=== PATIENT | male | born 1955 | race African-American/Black ===

== ENCOUNTER → 2023-07-10 | Outpatient (CLI) | payer BC ==
--- NOTE | 2023-07-10 10:03 | CT ---
EXAMINATION TYPE: CT brain wo con DATE OF EXAM: 07/10/2023 COMPARISON: None HISTORY: Chronic headache x7 days RT side CT DLP: 1246.80 mGycm Automated exposure control for dose reduction was used. FINDINGS: The ventricles and basal cisterns and sulci over the convexities are within normal limits and there i s no mass effect or shift of midline structures. There is no acute intra or extra-axial hemorrhage. Posterior fossa including the brainstem, fourth ventricle and cerebellar pontine angles appear grossl y normal. The intraorbital contents appear normal and symmetric. Visualized paranasal sinuses and mastoid air cells are well aerated. IMPRESSION: No significant abnormality seen. There is no acute bleed or mass effect.
== END | disposition home or self-care (01) ==
LOC: RADCTMAIN 09:30
PROVIDERS: ATTEND Family Medicine
DX: R51.9 Headache, unspecified (principal)
CPT/HCPCS: 70450

== ENCOUNTER 2024-06-10 20:34 | Emergency (ER) | payer BC, MEDICARE ==
[2024-06-10] MEDS ORDERED: SODIUM CHLORIDE 0.9% 1,000 ML BAG ONE (23:30)
[2024-06-10] MEDS ORDERED: MAG HYDROX/AL HYDROX/SIMETH 30 ML CUP ONE (23:30)
[2024-06-10] MEDS ORDERED: ONDANSETRON 4 MG/2 ML VIAL ONE (23:30)
[2024-06-10] MEDS ORDERED: LIDOCAINE VISCOUS 300 MG/15 ML CUP ONE (23:30)
[2024-06-10] MEDS ORDERED: HYOSCYAMINE ELIXIR 250 MCG/10 ML BTL ONE (23:30)
--- NOTE | 2024-07-18 13:35 | XR ---
EXAM: XR Chest, 2 Views CLINICAL HISTORY: Chest pain sob TECHNIQUE: Frontal and lateral views of the chest. COMPARISON: No relevant prior studies available. FINDINGS: Lungs:Atelectasis at the lung bases. Pleural space:Unremarkable. No pneumothorax. Heart:Unremarkable. No cardiomegaly. Mediastinum:Unremarkable. Normal mediastinal contour. Bones/joints:Unremarkable. No acute fracture. IMPRESSION: No acute findings in the chest. Radiologist: Lauro Giron MD Electronically Signed: 06/11/24 01:08 Study ready at 00:06 and initial results transmitted at 01:08 Results also transmitted to Film Room, Film Room @ [phone] (Fax) AZUL
== END 2024-06-11 02:32 | disposition home or self-care (01) ==
LOC: EC 20:34
DX: R07.89 Other chest pain (principal)
CPT/HCPCS: 71046; 99285

== ENCOUNTER 2024-06-12 17:26 | Inpatient (IN) | payer BC ==
[~2024-06-12 17:26] MED LIST: HYDROmorphone 0.5 MG/0.5 ML SYRINGE ONE; LACTATED RINGERS 1,000 ML BAG ONE; PIPERACILLIN-TAZOBACTAM 3.375 GM VIAL ONE; SODIUM CHLORIDE 0.9% 1,000 ML BAG ONE; SODIUM CHLORIDE 0.9% 100 ML BAG IV ONE
[2024-06-12] MEDS ORDERED: HYDROmorphone 1 MG/ML 1 ML SYRINGE ONE (20:17)
[2024-06-13] MEDS ORDERED: SODIUM CHLORIDE 0.9% 100 ML BAG IV ONE (00:01)
[2024-06-13] MEDS ORDERED: LACTATED RINGERS 1,000 ML BAG ONE (00:01)
[2024-06-13] MEDS ORDERED: HYDROmorphone 1 MG/ML 1 ML SYRINGE ONE ×3 (01:43→16:16)
[2024-06-13] MEDS ORDERED: PIPERACILLIN-TAZOBACTAM 3.375 GM VIAL ONE ×3 (05:26→21:43)
[2024-06-13] MEDS ORDERED: amLODIPine 10 MG TAB ONE (08:27)
[2024-06-13] MEDS ORDERED: ATORVASTATIN 10 MG TAB ONE (08:27)
[2024-06-13] MEDS ORDERED: PANTOPRAZOLE 40 MG TABLET PO ONE (08:27)
[2024-06-13] MEDS ORDERED: ACETAMINOPHEN TAB 325 MG TAB ONE (18:35)
[2024-06-13] MEDS ORDERED: INSULIN ASPART (NovoLOG) 100 UNIT/ML VIAL SQ ONE (18:35)
[2024-06-14] MEDS ORDERED: LACTATED RINGERS 1,000 ML BAG ONE (00:01)
[2024-06-14] MEDS ORDERED: SODIUM CHLORIDE 0.9% 100 ML BAG IV ONE (00:01)
[2024-06-14] MEDS ORDERED: HYDROmorphone 1 MG/ML 1 ML SYRINGE ONE ×2 (00:34→04:57)
[2024-06-14] MEDS ORDERED: PIPERACILLIN-TAZOBACTAM 3.375 GM VIAL ONE ×2 (06:40→14:30)
[2024-06-14] MEDS ORDERED: ACETAMINOPHEN TAB 325 MG TAB ONE (07:23)
[2024-06-14] MEDS ORDERED: amLODIPine 10 MG TAB ONE (07:24)
[2024-06-14] MEDS ORDERED: MIDAZOLAM 2 MG/2 ML VIAL ONE (07:59)
[2024-06-14] MEDS ORDERED: SUCCINYLCHOLINE CHLORIDE 200 MG/10 ML VIAL IV ONE (07:59)
[2024-06-14] MEDS ORDERED: PROPOFOL 10 MG/ML 20 ML VIAL IV ONE (07:59)
[2024-06-14] MEDS ORDERED: LIDOCAINE 1% INJ 10MG/ML (20 ML MDV) ONE (07:59)
[2024-06-14] MEDS ORDERED: ATORVASTATIN 10 MG TAB ONE (10:21)
[2024-06-14] MEDS ORDERED: PANTOPRAZOLE 40 MG TABLET PO ONE (10:21)
[2024-06-14] MEDS ORDERED: INSULIN ASPART (NovoLOG) 100 UNIT/ML VIAL SQ ONE (12:32)
[2024-06-14] MEDS ORDERED: ACETAMINOPHEN TAB 325 MG TAB PO PRN (21:58)
[2024-06-14] MEDS ORDERED: ONDANSETRON 4 MG/2 ML VIAL IVP PRN (21:58)
[2024-06-14] MEDS ORDERED: DEXTROSE 50% SYRINGE 50 ML IVP PRN ×2 (21:59)
[2024-06-15] MEDS: HYDROmorphone 1 MG/ML 1 ML SYRINGE IM PRN (05:18)
[2024-06-15] MEDS: LACTATED RINGERS 1,000 ML IV SCH ×2 (05:31→14:58)
[2024-06-15] MEDS: PIPERACILLIN-TAZOBACTAM 3.375 GM in SODIUM CHLORIDE 0.9% 100 ML IVPB SCH (05:32)
[2024-06-15 06:48] LABS: HCT 35.4 % (39.0-53.0); MCH 25.8 pg (25.0-35.0); Mean Platelet Volume 6.7; Microcytosis Slight; Platelet Count 275 k/uL (150-450); RBC 4.65 m/uL (4.30-5.90); RDW 14.8 % (11.5-15.5); WBC 8.8 k/uL (3.8-10.6)
[2024-06-15 07:01] LABS: ALT 81 U/L (4-49); AST 33 U/L (17-59); African American GFR (CKD) >90 (>60 ml/min/1.73 sqM); Albumin 3.2 g/dL (3.5-5.0); Albumin/Globulin Ratio 1.2; Alkaline Phosphatase 164 U/L (38-126); Anion Gap 4 mmol/L; Bilirubin,Unconjugated 0.8 mg/dL (0.0-1.1); Blood Urea Nitrogen 13 mg/dL (9-20); Calcium 8.7 mg/dL (8.4-10.2); Carbon Dioxide 29 mmol/L (22-30); Chloride 103 mmol/L (98-107); Globulin 2.7 g/dL; Glucose 146 mg/dL (74-99); Non-African American GFR(CKD) >90 (>60 ml/min/1.73 sqM); Potassium 3.8 mmol/L (3.5-5.1); Sodium 136 mmol/L (137-145); Total Bilirubin 1.6 mg/dL (0.2-1.3); Total Protein 5.9 g/dL (6.3-8.2)
[2024-06-15 07:15] LABS: Glucose,Whole Blood 139 mg/dL (70-110)
[2024-06-15] MEDS: INSULIN ASPART (NovoLOG) 100 UNIT/ML VIAL SQ SCH (07:25)
[2024-06-15] MEDS ORDERED: LIDOCAINE 1% (10MG/ML) FOR IV START INTRADERMA PRN (08:49)
[2024-06-15] MEDS: IV FLUID CONTINUATION 1,000 ML IV ONE ×2 (09:34→11:40)
[2024-06-15] MEDS ORDERED: HEPARIN SODIUM,PORCINE 5,000 UNIT/ML 1 ML VIAL ONE (10:01)
[2024-06-15] MEDS ORDERED: LACTATED RINGERS 1,000 ML BAG ONE (10:01)
[2024-06-15] MEDS: LIDOCAINE 1%-EPI 1:100,000 20 ML VIAL SQ ONE ×2 (10:02→10:38)
[2024-06-15] MEDS: LACTATED RINGERS 1,000 ML IV ONE (10:06)
[2024-06-15] MEDS ORDERED: HYDROcodone/APAP 10-325MG 1 EACH TAB PO PRN (10:32)
--- NOTE | 2024-06-15 10:43 | P.OP ---
Date of Procedure: 06/15/24 Preoperative Diagnosis: Choledocholithiasis Postoperative Diagnosis: Choledocholithiasis and Gangrenous Cholecystitis Procedure(s) Performed: Laparoscopic Subtotal Cholecystectomy Implants: None Anesthesia: MAC Surgeon: Aron Bateman Pathology: other (Gallbladder) Condition: stable Disposition: PACU Description of Procedure: Patient was brought to the operative suite and placed in the supine position. After anesthesia was given, patient was prepped and draped in sterile fashion. A timeout was performed before beginning the procedure. An #11 blade was used to make an incision at [facility] and a 5 mm optiview was used to gain access to the abdomen. The rest of the 5 mm ports and a 12 mm port were placed in traditional working locations for a laparoscopic cholecystectomy. The patient was then positioned. The abdomen was inspected and the omentum was densely a dhered to the liver and I could not immediately visualize the gallbladder. The ligasure was used to take down the omentum. Once the omentum was taken down the gallbladder was very distended and there was purulence surrounding the gallbladder. The gallbladder appeared gangrenous at well. The gallbladder was also densely adhered to the small bowel. Due to the gangenous nature of the gallbladder and because of its adherence to the small bowel, decision was made to perfom a subtotal cholecystectomy. A ligasure device was used to take off the front wall of the gallbladder to the base of the gallbladder. The gallbladder lumen was irrigated. The gallbladder specimen was removed. There was some bleeding noted which was controlled with cautery. A #19 F MIKI was placed in the hepatic fossa. Hemostatic powder was placed. At this point the ports were removed. The incisions were closed with 4-0 monocryl and skin glue was applied. The patient tolerated the procedure well and was sent to the PACU in stable condition.
[2024-06-15] MEDS: HYDROmorphone 0.5 MG/0.5 ML SYRINGE IVP PRN (11:11)
[2024-06-15] MEDS: KETOROLAC 15 MG/ML 1 ML VIAL IVP STA (11:15)
[2024-06-15 11:39] LABS: Glucose,Whole Blood 159 mg/dL (70-110)
[2024-06-15 12:32] LABS: Glucose,Whole Blood 167 mg/dL (70-110)
[2024-06-15] MEDS: ONDANSETRON 4 MG/2 ML VIAL IVP ONE (12:47)
[2024-06-15] MEDS: DEXAMETHASONE SOD PHOSPHATE 4 MG/ML 1 ML VIAL IV ONE (12:47)
[2024-06-15] MEDS: PANTOPRAZOLE 40 MG TABLET PO SCH (12:49)
[2024-06-15] MEDS: ATORVASTATIN 10 MG TAB PO SCH (12:50)
[2024-06-15] MEDS: amLODIPine 10 MG TAB PO SCH (12:54)
[2024-06-15] MEDS: HYDROmorphone 1 MG/ML 1 ML SYRINGE IVP PRN (14:06)
--- NOTE | 2024-06-15 14:10 | P.PN ---
Subjective Progress Note Date: 06/15/24 Hospital Course: 68-year-old male with history of hypertension, dyslipidemia, diabetes presented with abdominal pain. Imaging concerning for acute cholecystitis. Admitted for sepsis secondary cholecystitis. Surgery was consulted. Her worsening transaminases concerning for acute cholangitis. Underwent ERCP with sphincterotomy and balloon sweep. Today he underwent cholecystectomy. Subjective: Patient seen and examined at bedside. No acute events overnight. Still having some abdominal pain after surgery. Denies any nausea or vomiting. Pertinent positives and negatives as discussed above, a complete review of systems was performed and all other systems are negative. Vitals Signs Reviewed. General: Nontoxic, no distress, appears at stated age Derm: Warm, dry Head: Atraumatic, normocephalic, symmetric Eyes: EOMI, no lid lag, anicteric sclera Mouth: No lip lesion, mucus membranes moist Cardiovascular: S1S2 reg, no murmur Lungs: CTA bilateral, no rhonchi, no rales, no accessory muscle use Abdominal: Soft, mild tender to palpation in the right upper quadrant, no guarding, no appreciable organomegaly, drain in place, serosanguineous discharge Ext: No gross muscle atrophy, no edema, no contractures Neuro: CN II-XI grossly intact, no focal neuro deficits Psych: Alert, oriented, appropriate affect Data Reviewed Today: Pertinent Labs: WBC 8.8, hemoglobin 12, platelet 275, sodium 136, creatinine 0.77, blood sugars range between 1 39-1 67, ALP 164, AST 33, ALT 81, total bili 1.6 Imaging: No new imaging Assessment and Plan: Active: Sepsis secondary to acute cholecystitis status post cholecystectomy Suspected acute cholangitis status post ERCP Transaminitis Hyperbilirubinemia -Continue IV Zosyn 3.375 g every 8 hours -Tylenol as needed, [place] as needed, IV Dilaudid as needed for pain control, monitor for sedation -Continue LR at 75 cc an hour -Protonix 40 PO daily Hypertension -Continue amlodipine 10 mg daily Dyslipidemia -Continue atorvastatin 10 mg daily Diabetes -Sliding scale insulin, monitor for hypoglycemia DVT ppx: Subcu heparin Code status: Full code Anticipated discharge place: Pending clinical course Anticipated discharge time: Pending clinical course Objective - Vital Signs Vital signs: Vital Signs Temp 98.0 F 06/15/24 12:31 Pulse 94 06/15/24 13:27 Resp 20 06/15/24 12:31 BP 137/88 06/15/24 13:27 Pulse Ox 98 06/15/24 13:27 FiO2 Intake & Output 06/14/24 06/15/24 06/15/24 18:59 06:59 18:59 Intake Total 1300 Output Total 600 150 Balance -600 1150 Weight 163.293 kg Intake: IV 1300 Output: Urine 600 Estimated Blood Loss 150 Other: Voiding Method Toilet - Labs CBC & Chem 7: 06/15/24 06:06 06/15/24 06:06 Labs: Abnormal Lab Results - Last 24 Hours (Table) 06/15/24 06/15/24 06/15/24 Range/Units 06:06 06:06 07:13 Hgb 12.0 L (13.0-17.5) gm/dL Hct 35.4 L (39.0-53.0) % MCV 76.0 L (80.0-100.0) fL Sodium 136 L (137-145) mmol/L Glucose 146 H (74-99) mg/dL POC Glucose (mg/dL) 139 H (70-110) mg/dL Total Bilirubin 1.6 H (0.2-1.3) mg/dL ALT 81 H (4-49) U/L Alkaline Phosphatase 164 H (38-126) U/L Total Protein 5.9 L (6.3-8.2) g/dL Albumin 3.2 L (3.5-5.0) g/dL 06/15/24 06/15/24 Range/Units 11:37 12:29 Hgb (13.0-17.5) gm/dL Hct (39.0-53.0) % MCV (80.0-100.0) fL Sodium (137-145) mmol/L Glucose (74-99) mg/dL POC Glucose (mg/dL) 159 H 167 H (70-110) mg/dL Total Bilirubin (0.2-1.3) mg/dL ALT (4-49) U/L Alkaline Phosphatase (38-126) U/L Total Protein (6.3-8.2) g/dL Albumin (3.5-5.0) g/dL
[2024-06-15] MEDS: HEPARIN SODIUM,PORCINE 5,000 UNIT/ML 1 ML VIAL SQ SCH (15:56)
[2024-06-15 17:05] LABS: Glucose,Whole Blood 163 mg/dL (70-110)
[2024-06-15 18:06] LABS: Basophils % (A) 0 %; Eosinophils % (A) 0 %; HCT 39.1 % (39.0-53.0); HGB 13.1 gm/dL (13.0-17.5); Lymphocytes # (A) 0.6 k/uL (1.0-4.8); Lymphocytes % (A) 6 %; MCH 25.8 pg (25.0-35.0); MCHC 33.6 g/dL (31.0-37.0); MCV 76.6 fL (80.0-100.0); Mean Platelet Volume 6.6; Microcytosis Slight; Monocytes # (A) 0.5 k/uL (0-1.0); Monocytes % (A) 4 %; Neutrophils # (A) 9.5 k/uL (1.3-7.7); Neutrophils % (A) 89 %; Platelet Count 326 k/uL (150-450); RDW 14.9 % (11.5-15.5); WBC 10.7 k/uL (3.8-10.6)
[2024-06-15 20:10] LABS: Glucose,Whole Blood 141 mg/dL (70-110)
[2024-06-16] MEDS ORDERED: METOCLOPRAMIDE 5 MG/ML 2 ML VIAL IVP PRN (07:00)
[2024-06-16 07:15] LABS: Glucose,Whole Blood 151 mg/dL (70-110)
[2024-06-16 09:08] LABS: Basophils # (A) 0.01 X 10*3/uL (0.00-0.10); Basophils % (A) 0.1 %; Eosinophils # (A) 0 X 10*3/uL (0.04-0.35); Eosinophils % (A) 0 %; HGB 11.4 g/dL (13.0-17.0); Lymphocytes # (A) 1.18 X 10*3/uL (0.90-5.00); Lymphocytes % (A) 13.1 %; MCH 25.3 pg (27.0-32.0); MCHC 33.5 g/dL (32.0-37.0); MCV 75.4 FL (80.0-97.0); Mean Platelet Volume 9.2 FL (9.5-12.2); Monocytes # (A) 1.02 X 10*3/uL (0.20-1.00); Monocytes % (A) 11.3 %; NRBC Per 100 WBC 0 X 10*3/uL (0.00-0.01); Neutrophils # (A) 6.77 X 10*3/uL (1.80-7.70); Neutrophils % (A) 75.2 %; Platelet Count 293 X 10*3/uL (140-440); RBC 4.51 X 10*6/uL (4.40-5.60); RDW 14.8 % (11.5-14.5); WBC 9.01 X 10*3/uL (4.50-10.00)
[2024-06-16 09:19] LABS: ALT 64 U/L (10-49); AST 21 U/L (14-35); Albumin 3.5 g/dL (3.8-4.9); Alkaline Phosphatase 143 U/L (41-126); Bilirubin, Conjugated 0.62 mg/dL (0.20-0.40); Bilirubin,Unconjugated 0.48 mg/dL (0.20-1.00); Blood Urea Nitrogen 15.8 mg/dL (9.0-27.0); Calcium 8.8 mg/dL (8.7-10.3); Carbon Dioxide 25.5 mmol/L (21.6-31.8); Chloride 100 mmol/L (96-109); Globulin 2.5 g/dL (1.6-3.3); Glucose 143 mg/dL (70-110); Potassium 4.2 mmol/L (3.5-5.5); Sodium 139 mmol/L (135-145); Total Bilirubin 1.1 mg/dL (0.3-1.2)
[2024-06-16 12:32] LABS: Glucose,Whole Blood 152 mg/dL (70-110)
[2024-06-16] MEDS: TOPICAL SKIN ADHESIVE 1 EACH AMP TOPICAL ONE (12:59)
[2024-06-16] MEDS: HYDROmorphone 1 MG/ML 1 ML SYRINGE ONE ×9 (13:26→13:28)
[2024-06-16] MEDS: PANTOPRAZOLE 40 MG TABLET PO ONE (13:27)
[2024-06-16] MEDS: ACETAMINOPHEN TAB 325 MG TAB ONE (13:28)
--- NOTE | 2024-06-16 14:40 | P.PN ---
Subjective Progress Note Date: 06/16/24 Subjective: Patient seen and examined at the bedside. No acute events overnight. Patient is still complaining of some abdominal pain after surgery. Denies any nausea or vomiting, shortness of breath and chest pain. All Systems reviewed and pertinent positives and negatives noted in HPI, all other symptoms are negative. Objective: Vital signs reviewed. General: Patient in no apparent distress, appears at stated age Eyes: PERRLA, no scleral injection or icterus HEENT: normocephalic, atraumatic, good hearing acuity, moist mucous membranes Neck: full range of motion Resp: CTAB, no rales, rhonchi, or wheezes CVS: normal S1 and S2, no murmurs, rubs or gallops, no edema GI: soft, NTTP, ND, drain in place, serosanguineous discharge MSK: no clubbing, no cyanosis, no noted contractures of extremities Skin: no noted rashes, petechiae; temperature of skin is appropriate Neuro: moving all extremities without signs of weakness, CN II-XII grossly intact Psych: Alert, oriented, appropriate affect Data reviewed today: WBC 9.01, hemoglobin 11.4, hematocrit 34.0, MCV 75.4, platelet count 293, sodium 139, potassium 4.2, chloride 100, bicarb 25.5, anion gap 13.5, BUN 15.8, creatinine 1.0, GFR 82, ALT 64, AST 21, alkaline phosphatase 143, No new imaging Assessment and Plan: 68-year-old male with history of hypertension, dyslipidemia, and type 2 diabetes mellitus was admitted to the hospital for abdominal pain secondary to acute cholecystitis and acute cholangitis. Patient is status post subtotal laparoscopic cholecystectomy on 06/15/2024. 1. Sepsis secondary to acute cholecystitis status post cholecystectomy 2. Suspected acute cholangitis status post ERCP 3. Transaminitis secondary to acute cholecystitis Continue with IV Zosyn 3.375 g every 8 hour Continue lactated Ringer at 75 cc an hour -DC IV fluids once oral intake is improved -Currently on clear liquid diet Tylenol as needed, [place] as needed, IV Dilaudid as needed for pain control, monitor for sedation Protonix 40 p.o. daily 4. Hypertension secondary to pain Continue with amlodipine 10 mg daily Continue with pain control 5. Dyslipidemia Continue with atorvastatin 10 mg daily 6. Type 2 diabetes Blood glucose 142 Continue with sliding scale insulin, monitor for hypoglycemia Microcytic anemia -Outpatient follow-up, will need iron studies F: Lactated Ringer at 75 cc an hour E: Replete as needed N: Clear liquid diet A: Ambulatory DVT ppx: Heparin 5000 units SQ every 8 hours Code Status: Full code Anticipated discharge place: Home Anticipated discharge date: Pending clinical course I have seen and evaluated the patient today. Discussed with the resident and agree with the residents finding and plan as documented in the resident's note. Changes highlighted in blue font. Objective - Vital Signs Vital signs: Vital Signs Temp 98.1 F 06/16/24 13:20 Pulse 84 06/16/24 13:20 Resp 17 06/16/24 13:20 BP 142/81 06/16/24 13:20 Pulse Ox 96 06/16/24 13:20 FiO2 Intake & Output 06/15/24 06/16/24 06/16/24 18:59 06:59 18:59 Intake Total 2380 240 Output Total 320 400 400 Balance 2060 -160 -400 Intake: IV 1300 Oral 1080 240 Output: Drainage 20 Right Anterior Abdomen 20 Urine 150 400 400 Estimated Blood Loss 150 Other: Voiding Method Toilet Toilet - Labs CBC & Chem 7: 06/16/24 02:37 06/16/24 02:37 Labs: Abnormal Lab Results - Last 24 Hours (Table) 06/15/24 06/15/24 06/15/24 Range/Units 17:04 17:21 20:08 WBC 10.7 H (3.8-10.6) k/uL Hgb (13.0-17.0) g/dL Hct (39.6-50.0) % MCV 76.6 L (80.0-100.0) fL MCH (27.0-32.0) pg RDW (11.5-14.5) % MPV (9.5-12.2) FL Neutrophils # 9.5 H (1.3-7.7) k/uL Lymphocytes # 0.6 L (1.0-4.8) k/uL Monocytes # (0.20-1.00) X 10*3/uL Eosinophils # (0.04-0.35) X 10*3/uL Anion Gap (4.00-12.00) mmol/L Glucose (70-110) mg/dL POC Glucose (mg/dL) 163 H 141 H (70-110) mg/dL Conjugated Bilirubin (0.20-0.40) mg/dL ALT (10-49) U/L Alkaline Phosphatase (41-126) U/L Total Protein (6.2-8.2) g/dL Albumin (3.8-4.9) g/dL Albumin/Globulin Ratio (1.60-3.17) Ratio 06/16/24 06/16/24 06/16/24 Range/Units 02:37 02:37 07:05 WBC (3.8-10.6) k/uL Hgb 11.4 L (13.0-17.0) g/dL Hct 34.0 L (39.6-50.0) % MCV 75.4 L (80.0-100.0) fL MCH 25.3 L (27.0-32.0) pg RDW 14.8 H (11.5-14.5) % MPV 9.2 L (9.5-12.2) FL Neutrophils # (1.3-7.7) k/uL Lymphocytes # (1.0-4.8) k/uL Monocytes # 1.02 H (0.20-1.00) X 10*3/uL Eosinophils # 0 L (0.04-0.35) X 10*3/uL Anion Gap 13.50 H (4.00-12.00) mmol/L Glucose 143 H (70-110) mg/dL POC Glucose (mg/dL) 151 H (70-110) mg/dL Conjugated Bilirubin 0.62 H (0.20-0.40) mg/dL ALT 64 H (10-49) U/L Alkaline Phosphatase 143 H (41-126) U/L Total Protein 6.0 L (6.2-8.2) g/dL Albumin 3.5 L (3.8-4.9) g/dL Albumin/Globulin Ratio 1.40 L (1.60-3.17) Ratio 06/16/24 Range/Units 12:31 WBC (3.8-10.6) k/uL Hgb (13.0-17.0) g/dL Hct (39.6-50.0) % MCV (80.0-100.0) fL MCH (27.0-32.0) pg RDW (11.5-14.5) % MPV (9.5-12.2) FL Neutrophils # (1.3-7.7) k/uL Lymphocytes # (1.0-4.8) k/uL Monocytes # (0.20-1.00) X 10*3/uL Eosinophils # (0.04-0.35) X 10*3/uL Anion Gap (4.00-12.00) mmol/L Glucose (70-110) mg/dL POC Glucose (mg/dL) 152 H (70-110) mg/dL Conjugated Bilirubin (0.20-0.40) mg/dL ALT (10-49) U/L Alkaline Phosphatase (41-126) U/L Total Protein (6.2-8.2) g/dL Albumin (3.8-4.9) g/dL Albumin/Globulin Ratio (1.60-3.17) Ratio
--- NOTE | 2024-06-16 15:34 | P.PN ---
Subjective Patient seen and evaluated at bedside. Patient complaining of pain. Objective - Vital Signs Vital signs: Vital Signs Temp 98.1 F 06/16/24 13:20 Pulse 84 06/16/24 13:20 Resp 17 06/16/24 13:20 BP 142/81 06/16/24 13:20 Pulse Ox 96 06/16/24 13:20 FiO2 Intake & Output 06/15/24 06/16/24 06/16/24 18:59 06:59 18:59 Intake Total 2380 240 Output Total 320 400 400 Balance 2060 -160 -400 Intake: IV 1300 Oral 1080 240 Output: Drainage 20 Right Anterior Abdomen 20 Urine 150 400 400 Estimated Blood Loss 150 Other: Voiding Method Toilet Toilet - Exam gen: nad cv: rrr pul: non labored breathing abd: soft, non distended, no guarding or rebound tenderness, surgical incisions c/d/i except drain site. drainage around tube - Labs CBC & Chem 7: 06/16/24 02:37 06/16/24 02:37 Labs: Abnormal Lab Results - Last 24 Hours (Table) 06/15/24 06/15/24 06/15/24 Range/Units 17:04 17:21 20:08 WBC 10.7 H (3.8-10.6) k/uL Hgb (13.0-17.0) g/dL Hct (39.6-50.0) % MCV 76.6 L (80.0-100.0) fL MCH (27.0-32.0) pg RDW (11.5-14.5) % MPV (9.5-12.2) FL Neutrophils # 9.5 H (1.3-7.7) k/uL Lymphocytes # 0.6 L (1.0-4.8) k/uL Monocytes # (0.20-1.00) X 10*3/uL Eosinophils # (0.04-0.35) X 10*3/uL Anion Gap (4.00-12.00) mmol/L Glucose (70-110) mg/dL POC Glucose (mg/dL) 163 H 141 H (70-110) mg/dL Conjugated Bilirubin (0.20-0.40) mg/dL ALT (10-49) U/L Alkaline Phosphatase (41-126) U/L Total Protein (6.2-8.2) g/dL Albumin (3.8-4.9) g/dL Albumin/Globulin Ratio (1.60-3.17) Ratio 06/16/24 06/16/24 06/16/24 Range/Units 02:37 02:37 07:05 WBC (3.8-10.6) k/uL Hgb 11.4 L (13.0-17.0) g/dL Hct 34.0 L (39.6-50.0) % MCV 75.4 L (80.0-100.0) fL MCH 25.3 L (27.0-32.0) pg RDW 14.8 H (11.5-14.5) % MPV 9.2 L (9.5-12.2) FL Neutrophils # (1.3-7.7) k/uL Lymphocytes # (1.0-4.8) k/uL Monocytes # 1.02 H (0.20-1.00) X 10*3/uL Eosinophils # 0 L (0.04-0.35) X 10*3/uL Anion Gap 13.50 H (4.00-12.00) mmol/L Glucose 143 H (70-110) mg/dL POC Glucose (mg/dL) 151 H (70-110) mg/dL Conjugated Bilirubin 0.62 H (0.20-0.40) mg/dL ALT 64 H (10-49) U/L Alkaline Phosphatase 143 H (41-126) U/L Total Protein 6.0 L (6.2-8.2) g/dL Albumin 3.5 L (3.8-4.9) g/dL Albumin/Globulin Ratio 1.40 L (1.60-3.17) Ratio 06/16/24 Range/Units 12:31 WBC (3.8-10.6) k/uL Hgb (13.0-17.0) g/dL Hct (39.6-50.0) % MCV (80.0-100.0) fL MCH (27.0-32.0) pg RDW (11.5-14.5) % MPV (9.5-12.2) FL Neutrophils # (1.3-7.7) k/uL Lymphocytes # (1.0-4.8) k/uL Monocytes # (0.20-1.00) X 10*3/uL Eosinophils # (0.04-0.35) X 10*3/uL Anion Gap (4.00-12.00) mmol/L Glucose (70-110) mg/dL POC Glucose (mg/dL) 152 H (70-110) mg/dL Conjugated Bilirubin (0.20-0.40) mg/dL ALT (10-49) U/L Alkaline Phosphatase (41-126) U/L Total Protein (6.2-8.2) g/dL Albumin (3.8-4.9) g/dL Albumin/Globulin Ratio (1.60-3.17) Ratio Assessment and Plan Assessment: 68 yo male s/p lap candy -continue iv antibiotics -discussed w/ nursing regarding giving simethicone and strip torres drain twice per shift -pain management -continue diet Time with Patient: Less than 30
[2024-06-16] MEDS: SIMETHICONE 80 MG CHEWABLE PO PRN (16:25)
[2024-06-16 17:07] LABS: Glucose,Whole Blood 121 mg/dL (70-110)
[2024-06-16 20:25] LABS: Glucose,Whole Blood 121 mg/dL (70-110)
[2024-06-17 07:09] LABS: Glucose,Whole Blood 152 mg/dL (70-110)
[2024-06-17 11:26] LABS: Glucose,Whole Blood 137 mg/dL (70-110)
--- NOTE | 2024-06-17 14:31 | P.PN ---
Subjective Progress Note Date: 06/17/24 Subjective: Patient seen and examined at the bedside. No acute events overnight. Patient is still complaining of some abdominal pain after surgery. Denies any nausea or vomiting, shortness of breath and chest pain. All Systems reviewed and pertinent positives and negatives noted in HPI, all other symptoms are negative. Objective: Vital signs reviewed. General: Patient in no apparent distress, appears at stated age Eyes: PERRLA, no scleral injection or icterus HEENT: normocephalic, atraumatic, good hearing acuity, moist mucous membranes Neck: full range of motion Resp: CTAB, no rales, rhonchi, or wheezes CVS: normal S1 and S2, no murmurs, rubs or gallops, no edema GI: soft, NTTP, ND, drain in place, serosanguineous discharge MSK: no clubbing, no cyanosis, no noted contractures of extremities Skin: no noted rashes, petechiae; temperature of skin is appropriate Neuro: moving all extremities without signs of weakness, CN II-XII grossly intact Psych: Alert, oriented, appropriate affect Data reviewed today: No new imaging Assessment and Plan: 68-year-old male with history of hypertension, dyslipidemia, and type 2 diabetes mellitus was admitted to the hospital for abdominal pain secondary to acute cholecystitis and acute cholangitis. Patient is status post subtotal laparoscopic cholecystectomy on 06/15/2024. 1. Sepsis secondary to acute cholecystitis status post cholecystectomy 2. Suspected acute cholangitis status post ERCP 3. Transaminitis secondary to acute cholecystitis -Continue with IV Zosyn 3.375 g every 8 hour -Continue lactated Ringer at 75 cc an hour -DC IV fluids once oral intake is improved -Currently on clear liquid diet -Tylenol as needed, [place] as needed, IV Dilaudid as needed for pain control, monitor for sedation -Protonix 40 p.o. daily -CBC and BMP is ordered 4. Hypertension secondary to pain Continue with amlodipine 10 mg daily Continue with pain control 5. Dyslipidemia Continue with atorvastatin 10 mg daily 6. Type 2 diabetes Blood glucose 142 Continue with sliding scale insulin, monitor for hypoglycemia Microcytic anemia -Outpatient follow-up, will need iron studies F: Lactated Ringer at 75 cc an hour E: Replete as needed N: Clear liquid diet A: Ambulatory DVT ppx: Heparin 5000 units SQ every 8 hours Code Status: Full code Anticipated discharge place: Home Anticipated discharge date: Pending clinical course I saw and evaluated the patient during the suh and critical portions of this encounter, and discussed the case in detail with the resident author of this note, I agree with the Assessment and Plan, and my changes, if any, are highlighted in blue. Objective - Vital Signs Vital signs: Vital Signs Temp 98.0 F 06/17/24 12:19 Pulse 99 06/17/24 12:19 Resp 16 06/17/24 12:19 BP 166/95 06/17/24 12:19 Pulse Ox 98 06/17/24 12:19 FiO2 Intake & Output 06/16/24 06/17/24 06/17/24 18:59 06:59 18:59 Intake Total 1060 Output Total 400 20 Balance -400 -20 1060 Intake: Oral 1060 Output: Drainage 20 Right Anterior Abdomen 20 Urine 400 Other: Voiding Method Toilet Urinal # Voids 3 3 - Labs CBC & Chem 7: 06/17/24 14:45 06/16/24 02:37 Labs: Abnormal Lab Results - Last 24 Hours (Table) 06/16/24 06/16/24 06/17/24 Range/Units 17:06 20:23 07:07 POC Glucose (mg/dL) 121 H 121 H 152 H (70-110) mg/dL 06/17/24 Range/Units 11:25 POC Glucose (mg/dL) 137 H (70-110) mg/dL
[2024-06-17 15:03] LABS: Basophils # (A) 0.1 k/uL (0-0.2); Basophils % (A) 1 %; Eosinophils # (A) 0.2 k/uL (0-0.7); Eosinophils % (A) 2 %; HGB 11.5 gm/dL (13.0-17.5); Lymphocytes # (A) 1.3 k/uL (1.0-4.8); Lymphocytes % (A) 16 %; MCH 25.2 pg (25.0-35.0); MCHC 32.7 g/dL (31.0-37.0); MCV 76.8 fL (80.0-100.0); Mean Platelet Volume 7.7; Microcytosis Slight; Monocytes # (A) 0.6 k/uL (0-1.0); Monocytes % (A) 7 %; Neutrophils # (A) 5.8 k/uL (1.3-7.7); Neutrophils % (A) 72 %; Platelet Count 352 k/uL (150-450); RBC 4.56 m/uL (4.30-5.90); RDW 14.7 % (11.5-15.5)
--- NOTE | 2024-06-17 15:55 | P.PN ---
Progress Note - Text Progress Note Date: 06/17/24 Patient Seen and Examined. No acute events overnight. He is sitting in chair comfortably. He is tolerating CLD. He is passing gas. He denies fevers, chills, nausea, and vomiting. Post Operative pain is controlled. His MIKI drain is serosangenous. VSS General-NAD CVS-RRR Lungs-NLB Abdomen-soft, appropriate TTP, mild distention, MIKI-serosangenous 68 year old male s/p Laparoscopic Cholecystectomy -Advanced to Diabetic Diet -CBC/BMP/LFTs ordered: will follow up -Pain and Nausea Control -OOB, ambulate, IS -Zosyn
[2024-06-17 16:36] LABS: Glucose,Whole Blood 128 mg/dL (70-110)
[2024-06-17 17:27] LABS: Glucose,Whole Blood 126 mg/dL (70-110)
[2024-06-17 19:27] LABS: ALT 45 U/L (10-49); AST 13 U/L (14-35); Albumin 3.5 g/dL (3.8-4.9); Albumin/Globulin Ratio 1.35 Ratio (1.60-3.17); Alkaline Phosphatase 130 U/L (41-126); BUN/Creat Ratio 14.25 Ratio (12.00-20.00); Bilirubin, Conjugated 0.45 mg/dL (0.20-0.40); Bilirubin,Unconjugated 0.35 mg/dL (0.20-1.00); Blood Urea Nitrogen 11.4 mg/dL (9.0-27.0); Carbon Dioxide 29.4 mmol/L (21.6-31.8); Chloride 103 mmol/L (96-109); Globulin 2.6 g/dL (1.6-3.3); Glucose 128 mg/dL (70-110); Potassium 4.1 mmol/L (3.5-5.5); Sodium 142 mmol/L (135-145); Total Bilirubin 0.8 mg/dL (0.3-1.2); Total Protein 6.1 g/dL (6.2-8.2)
[2024-06-17 20:06] LABS: Glucose,Whole Blood 112 mg/dL (70-110)
[2024-06-18 06:57] LABS: Glucose,Whole Blood 110 mg/dL (70-110)
--- NOTE | 2024-06-18 07:42 | P.PN ---
Progress Note - Text Progress Note Date: 06/18/24 Patient Seen and Examined. No acute events overnight. He is sitting in chair comfortably. He is tolerating diet. He is passing gas. He denies fevers, chills, nausea, and vomiting. Post Operative pain is controlled. His MIKI drain is serosangenous. VSS General-NAD CVS-RRR Lungs-NLB Abdomen-soft, appropriate TTP, mild distention, MIKI-serosangenous 68 year old male s/p Laparoscopic Cholecystectomy -Diabetic Diet -CBC/BMP/LFTs reviewed -Pain and Nausea Control -OOB, ambulate, IS -Zosyn -Anticipate discharge in the next 24-48 hours
[2024-06-18 11:37] LABS: Glucose,Whole Blood 154 mg/dL (70-110)
--- NOTE | 2024-06-18 13:33 | P.PN ---
Subjective Progress Note Date: 06/18/24 Subjective: Patient seen and examined at the bedside. No acute events overnight. Pt reports some burning pain when eating, but does have an appetite. Continues to pass flatus, but no BM at this time. All Systems reviewed and pertinent positives and negatives noted in HPI, all other symptoms are negative. Objective: Vital signs reviewed. Gen: In NAD, non-toxic HEENT: normocephalic, atraumatic, hearing acuity is intant, mucous membranes moist CVS: perfusing all extremities well, no pitting edema, Respiratory: symmetric chest expansion, no accessory muscle use, GI: soft, NTTP, ND, : no suprapubic tenderness, no CVA tenderness MSK/Derm: no rashes, cyanosis Neuro: CN II-XII intact, no motor weakness, Psych: cooperative, euthymic mood, judgment and insight is intact Data reviewed today: No new imaging Assessment and Plan: 68-year-old male with history of hypertension, dyslipidemia, and type 2 diabetes mellitus was admitted to the hospital for abdominal pain secondary to acute cholecystitis and acute cholangitis. Patient is status post subtotal laparoscopic cholecystectomy on 06/15/2024. 1. Sepsis secondary to acute cholecystitis status post cholecystectomy 2. Suspected acute cholangitis status post ERCP 3. Transaminitis secondary to acute cholecystitis -Continue with IV Zosyn 3.375 g every 8 hour -Continue lactated Ringer at 75 cc an hour -DC IV fluids once oral intake is improved -Currently on clear liquid diet -Tylenol as needed, [place] as needed, IV Dilaudid as needed for pain control, monitor for sedation -Protonix 40 p.o. daily -CBC and BMP is ordered 4. Hypertension secondary to pain Continue with amlodipine 10 mg daily Continue with pain control 5. Dyslipidemia Continue with atorvastatin 10 mg daily 6. Type 2 diabetes Blood glucose 142 Continue with sliding scale insulin, monitor for hypoglycemia Microcytic anemia -Outpatient follow-up, will need iron studies F: Lactated Ringer at 75 cc an hour E: Replete as needed N: Clear liquid diet A: Ambulatory DVT ppx: Heparin 5000 units SQ every 8 hours Code Status: Full code Anticipated discharge place: Home Anticipated discharge date: Tomorrow a.m. Objective - Vital Signs Vital signs: Vital Signs Temp 97.6 F 06/18/24 06:55 Pulse 85 06/18/24 06:55 Resp 16 06/18/24 06:55 BP 146/77 06/18/24 06:55 Pulse Ox 97 06/18/24 09:09 FiO2 Intake & Output 06/17/24 06/18/24 06/18/24 18:59 06:59 18:59 Intake Total 2620 480 Output Total 1020 20 Balance 1600 -20 480 Intake: Oral 2620 480 Output: Drainage 20 20 Right Anterior Abdomen 20 20 Urine 1000 Other: Voiding Method Toilet Urinal # Voids 3 - Labs CBC & Chem 7: 06/17/24 14:45 06/17/24 14:45 Labs: Abnormal Lab Results - Last 24 Hours (Table) 06/17/24 06/17/24 06/17/24 Range/Units 14:45 14:45 16:34 Hgb 11.5 L (13.0-17.5) gm/dL Hct 35.0 L (39.0-53.0) % MCV 76.8 L (80.0-100.0) fL Glucose 128 H (70-110) mg/dL POC Glucose (mg/dL) 128 H (70-110) mg/dL Conjugated Bilirubin 0.45 H (0.20-0.40) mg/dL AST 13 L (14-35) U/L Alkaline Phosphatase 130 H (41-126) U/L Total Protein 6.1 L (6.2-8.2) g/dL Albumin 3.5 L (3.8-4.9) g/dL Albumin/Globulin Ratio 1.35 L (1.60-3.17) Ratio 06/17/24 06/17/24 06/18/24 Range/Units 17:26 20:05 11:35 Hgb (13.0-17.5) gm/dL Hct (39.0-53.0) % MCV (80.0-100.0) fL Glucose (70-110) mg/dL POC Glucose (mg/dL) 126 H 112 H 154 H (70-110) mg/dL Conjugated Bilirubin (0.20-0.40) mg/dL AST (14-35) U/L Alkaline Phosphatase (41-126) U/L Total Protein (6.2-8.2) g/dL Albumin (3.8-4.9) g/dL Albumin/Globulin Ratio (1.60-3.17) Ratio
[2024-06-18 17:29] LABS: Glucose,Whole Blood 111 mg/dL (70-110)
[2024-06-18 20:08] LABS: Glucose,Whole Blood 123 mg/dL (70-110)
[2024-06-19] MEDS ORDERED: HEPARIN SODIUM,PORCINE 5,000 UNIT/ML 1 ML VIAL ONE
[2024-06-19 07:15] LABS: Glucose,Whole Blood 132 mg/dL (70-110)
[2024-06-19] MEDS: MAG HYDROX/AL HYDROX/SIMETH 30 ML CUP PO SCH (08:14)
[2024-06-19] MEDS: bisacodyL 10 MG SUPP RECTAL STA (08:14)
[2024-06-19 08:29] VITALS: RESP 16; TEMP 98.4
--- NOTE | 2024-06-19 09:43 | P.PN ---
Subjective patient seen and evaluated bedside. Patient denies nausea, vomiting, fevers, chills, tolerating diet. He does admit to mild epigastric pain. No bowel movement but is passing gas Objective - Vital Signs Vital signs: Vital Signs Temp 98.4 F 06/19/24 07:13 Pulse 81 06/19/24 07:13 Resp 16 06/19/24 07:13 BP 168/92 06/19/24 07:13 Pulse Ox 95 06/19/24 07:13 FiO2 Intake & Output 06/18/24 06/19/24 06/19/24 18:59 06:59 18:59 Intake Total 1800 240 240 Output Total 1200 505 Balance 600 -265 240 Intake: Oral 1800 240 240 Output: Drainage 5 Right Anterior Abdomen 5 Urine 1200 500 - Exam gen: nad cv: rrr pul: non labored breathing abd: soft, non tender to palpation, no guarding or rebound tenderness, surgical sites clean dry and intact with MIKI drain producing sutures and when his output which has improved from the bleeding several days ago. Questionable 30-40 mL in the last 24 hours - Labs CBC & Chem 7: 06/17/24 14:45 06/17/24 14:45 Labs: Abnormal Lab Results - Last 24 Hours (Table) 06/18/24 06/18/24 06/18/24 Range/Units 11:35 17:28 20:06 POC Glucose (mg/dL) 154 H 111 H 123 H (70-110) mg/dL 06/19/24 Range/Units 07:14 POC Glucose (mg/dL) 132 H (70-110) mg/dL Assessment and Plan Plan: 68-year-old male status post Cholecystectomy White Count Is Normal, Bilirubin Has Normalized, Tolerated Diet Patient Is Stable for Discharge Constipation, Suppository Order Minimal Epigastric Pain, Maalox Ordered MIKI Drain, Servicing As Output Maypole before Discharge or Follow-Up As Outpatient and Will Remove in Clinic Time with Patient: Less than 30
[2024-06-19 12:09] LABS: Glucose,Whole Blood 137 mg/dL (70-110)
[2024-06-19 12:44] VITALS: BP 146/89; PULSE 88
[2024-06-19 14:00] VITALS: BMI 42.7
--- NOTE | 2024-06-19 17:02 | P.DS ---
Providers Date of admission: 06/12/24 17:26 Attending physician: Abundio Sorto MD Discharge Diagnosis: 1. Sepsis secondary to acute cholecystitis status post cholecystectomy 2. Suspected acute cholangitis status post ERCP 3. Transaminitis secondary to acute cholecystitis 4. Hypertension 5. Dyslipidemia 6. Type 2 diabetes mellitus 7. Microcytic anemia Hospital Course: 68-year-old male with history of hypertension, dyslipidemia, type 2 diabetes mellitus and hernia repair presented to the hospital on 06/12/2024 with a chief complaint of abdominal pain since 4 days. Blood pressure 181/96, heart rate 99, respiratory 18, oxygen saturation 95% on room air. Patient had extensive laboratory evaluation in the ER. Sodium 135, potassium 4.3, chloride 101, bicarb 27, BUN 18, creatinine 1.04, platelet count 145, WBC 12.5, hemoglobin 14.6, hematocrit 43, platelet count 293, lactate 1.0, amylase 45, calcium 9.8. CT abdomen pelvis with contrast in the ER showed thickened gallbladder wall with adjacent inflammatory changes and gallstone present. Patient was admitted for sepsis secondary to acute cholecystitis. Patient was started on IV piperacillin/tazobactam. General surgery was consulted. Labs on 06/14/2024 show evaluated LFTs i.e. total bili 3.4 AST 66 alkaline phosphatase 169 ALT 116 with concerns for acute cholangitis. Patient underwent ERCP on 06/14/2024 with findings of dilated common bile duct measuring at least 1 cm in diameter with a weak feeling defect in the distal common bile duct status post biliary stent durotomy balloon sweep. No stones were seen exiting the ampulla. However there was some old clot and sinus material that was extracted from the distal common bile duct. Occlusion cholangiogram at the end of the procedure did not reveal any other filling defects. Patient subsequently underwent laparoscopic subtotal cholecystectomy performed on 06/15/2024. Patient continued to be on piperacillin/tazobactam. MIKI drain had serosanguineous drainage. Postop course was largely unremarkable except for abdominal pain postsurgery which was tolerated with pain medication such as morphine and Dilaudid as needed. Patient also did not have bowel movement since surgery but was able to pass gas. Patient is advised outpatient follow-up with general surgery Dr. Carty and his PCP. Patient is discharged today 06/19/2024 to home with self-care. Patient is advised to continue outpatient antibiotic therapy with Augmentin [id number] 1 tab p.o. every 12 hour for 3 days. His other discharge medications are amlodipine 10 mg p.o. daily, Lipitor 10 mg p.o. daily, Protonix 40 mg p.o. daily and Pollock 53 25 1 tab p.o. every 6 hours as needed. Vital signs reviewed. Gen: in no apparent distress, resting comfortably in bed Eyes: PERRL, no scleral injection or icterus HENT: normocephalic, atraumatic, good hearing acuity, moist mucous membranes Neck: full range of motion Resp: CTAB, no rales, rhonchi, or wheezes CVS: normal S1 and S2, no murmurs, rubs or gallops, no edema GI: soft, NTTP, ND, no hepatosplenomegaly : no suprapubic tenderness, no CVAT, santos catheter [is/not] present MSK: no clubbing, no cyanosis, no noted contractures of extremities Skin: no noted rashes, petechiae; temperature of skin is appropriate Neuro: moving all extremities without signs of weakness, CN II-XII intact Psych: cooperative, euthymic mood, insight and judgment intact Consults: 06/12/24 16:16 Consult Physician Routine Consulting Provider: Joseph Santillan Consult Reason/Comments: acute cholecystitis Do you want consulting provider notified?: Already Contacted Consult Physician Routine Consulting Provider: Juanita Olson Consult Reason/Comments: cholecystitis Do you want consulting provider notified?: Already Contacted Primary care physician: Stated None Hospital Course: Patient was seen and examined by me and the resident. I agree with the subjective and objective as above. We discussed the assessment and plan as documented below: Patient reports well controlled pain. Discussed with RN, cleared by Surgery for discharge. MIKI drain to come out prior to discharge. We will prescribe Augmentin 875-125 mg PO BID x 3 days to complete a total of 7 days antibiotics. Pollock PRN prescribed for pain. Follow up with PCP within 1-2 days of discharge and Dr. Carty within 1 week of discharge. Discharge Diagnosis: Sepsis secondary to acute cholecystitis status post cholecystectomy Suspected acute cholangitis status post ERCP Transaminitis secondary to acute cholecystitis Hypertension secondary to pain Dyslipidemia Type 2 diabetes Microcytic anemia This complex discharge took 35 minutes to complete. Patient Condition at Discharge: Stable Plan - Discharge Summary New Discharge Prescriptions: New amLODIPine 10 mg PO DAILY #30 tab Atorvastatin [Lipitor] 10 mg PO DAILY #30 tab Amoxic-Pot Clav 875-125Mg [Augmentin 875-125] 1 tab PO Q12HR 3 Days #6 tab Pantoprazole Sodium [Protonix] 40 mg PO DAILY #30 tab HYDROcodone/APAP 5-325MG [Pollock 5-325] 1 tab PO Q6HR PRN 3 Days #12 tab PRN Reason: Pain Discharge Medication List Amoxic-Pot Clav 875-125Mg [Augmentin 875-125] 1 tab PO Q12HR 3 Days #6 tab 06/19/24 [Rx] Atorvastatin [Lipitor] 10 mg PO DAILY #30 tab 06/19/24 [Rx] HYDROcodone/APAP 5-325MG [Pollock 5-325] 1 tab PO Q6HR PRN 3 Days #12 tab 06/19/24 [Rx] Pantoprazole Sodium [Protonix] 40 mg PO DAILY #30 tab 06/19/24 [Rx] amLODIPine 10 mg PO DAILY #30 tab 06/19/24 [Rx] Follow up Appointment(s)/Referral(s): Awais Carty DO [Doctor of Osteopathic Medicine] - 07/08/24 10:00 am ([address] [facility] [address] ([phone])) Nonstaff,Physician [REFERRING] - 1-2 Days Patient Instructions/Handouts: Hydrocodone/Acetaminophen (By mouth), Amoxicillin/Clavulanate Potassium (By mouth), Amlodipine (By mouth), Atorvastatin (By mouth), Pantoprazole (By mouth), Constipation (DC), Laparoscopic Cholecystectomy (DC) Discharge Disposition: HOME SELF-CARE
--- NOTE | 2024-06-20 11:27 | FL ---
EXAMINATION TYPE: FL ERCP DATE OF EXAM: 06/20/2024 FLUOROSCOPY fl time 1.44 minutes dap 31.114 Gycm2 ercp kartik stone 3 images submitted.
--- NOTE | 2024-06-25 16:52 | OP ---
OPERATIVE REPORT DATE OF SERVICE : 06/14/2024 REQUESTING PHYSICIAN: . BRIEF HISTORY: The patient is a 68-year-old male admitted to the hospital with acute onset of severe epigastric and right upper quadrant abdominal pain. At the time of admission to the hospital, he was noted to have mild leukocytosis with mild elevation of bilirubin with normal serum transaminases. Yesterday, the serum transaminases increased with a bilirubin of 4.8, ALT and AST in the 100 range and alkaline phosphatase of 200. He did have a CT of the abdomen that showed evidence of gallstones and dilated CBD measuring 1.1 cm in diameter. Because of the clinical suspicion for CBD stone, he is scheduled for an ERCP to evaluate further. PROCEDURE PERFORMED: ERCP with biliary sphincterotomy and balloon sweep. PREOPERATIVE DIAGNOSIS: Acute onset of epigastric and right upper quadrant abdominal pain, elevated LFTs and jaundice, and symptomatic gallstones. IV sedation per Anesthesia. DESCRIPTION OF PROCEDURE: After informed consent was obtained from the patient, he was brought into the endoscopy unit. Under general anesthesia, the procedure was performed. The patient was placed in prone position. The side-viewing duodenoscope was entered into the mouth. Esophagus intubated without any difficulty and was gradually advanced into the stomach and duodenum. The major papilla was identified without any difficulty. Initial cannulation measuring at least 1 cm in diameter. There was some vague filling defect that was noted in the distal common bile duct. At this time, the biliary sphincterotomy was performed after the catheter was exchanged over a guidewire and a sphincterotomy was performed at 11 o'clock position and was extended to 1 cm. Following this, 11.5 mm balloon was passed over the guidewire into the proximal CBD and was inflated and gently withdrawn and as it was being withdrawn there was some serosanguineous material along with a clot that was seen exiting the ampulla. No obvious stones were noted. This maneuver was repeated at least 3 or 4 more times and there was some sanguineous discharge that continued to drain. This maneuver was repeated at least 5 or 6 times until clear bile was seen exiting the ampulla. Occlusion cholangiogram was performed. No filling defects were identified. The pancreatic duct was not cannulated during the entire procedure. The patient tolerated the procedure well. IMPRESSION: 1. Dilated common bile duct measuring at least 1 cm in diameter with a vague filling defect in the distal common bile duct status post biliary sphincterotomy and balloon sweep. No stones were seen exiting the ampulla. However, there was some old clot and sanguineous material that was extracted from the distal common bile duct. Occlusion cholangiogram at the end of the procedure did not reveal any other filling defects. The patient tolerated the procedure well. 2. Pancreatic duct was intentionally not cannulated. RECOMMENDATIONS: Findings of this examination were discussed with the patient. At this time, we will monitor LFTs closely. Continue with broad-spectrum antibiotics. Start him on a clear liquid diet today. MMODL / IJN: [id number] /
--- NOTE | 2024-07-01 13:19 | CT ---
Patient: Guille Melgar Ordering Physician: Unknown, Unknown ID: [id number] Phone, Pager: Phone: N/A Pager: N/A : [phone] Age/Gender: 68Y, F Primary Location: N/A Procedure: CT abdomen pelvis w o con Study Date: 06/12/2024 1:46:00 PM EXAMINATION TYPE: CT abdomen pelvis w con DATE OF EXAM: 06/12/2024 COMPARISON: No comparison available on downtime PACS. INDICATION: Abdominal pain constipation DLP: 2441.4 mGycm, Automated exposure control for dose reduction was used. CONTRAST: 0 mL of Isovue 300. Study performed without Oral Contrast TECHNIQUE: Axial images were obtained from above the diaphragm to the pubic rami in the axial plane a t 5 mm thick sections. Reconstructed images are reviewed on the computer in the coronal plane. FINDINGS: Limited CT sections are obtained the lung bases. The lung bases are clear. CT ABDOMEN: Liver: Normal Spleen: Normal Pancreas: Normal Adrenal glands: The adrenal glands are normal. Gallbladder: Gallstones present. Some inflammatory changes may surround the gallbladder. Gallbladder wall thickening is present. Correlate for acute cholecystitis. Kidneys: No masses are evident. No hydronephrosis is present. No cysts are present. Delayed images were obtained through the kidneys, which remain unremarkable. Aorta: Vascular calcification is within the aorta. Inferior vena cava: Normal. CT PELVIS: Loops of bowel within the abdomen and pelvis are normal. No significant fecal retention is eviden t. The study is without oral contrast limiting bowel evaluation. Appendix: Normal as visualized. Urinary bladder: Decompressed with limited evaluation. Genitourinary structures: Uterus and ovaries are not identified. Osseous structures: No suspicious lytic or sclerotic lesions. IMPRESSION: 1. Thickened gallbladder wall with adjacent inflammatory changes. A gallstone is present. Correlate for acute cholecystitis.
--- NOTE | 2024-07-09 15:42 | US ---
EXAMINATION TYPE: US abdomen limited DATE OF EXAM: 06/12/2024 COMPARISON: NONE CLINICAL INDICATION: Unknown, old with history of ; TECHNIQUE: Multiple sonographic images of the right upper quadrant are obtained. FINDINGS: GB RUQ pain Liver 22.7 cm Gallstone seen in neck. thickened wall .9 cm Dilated CBD 1.1 cm IMPRESSION: Correlate for acute cholecystitis.
== END 2024-06-19 15:42 | disposition home or self-care (01) | DRG 854 ==
LOC: 5NMEDONC 17:26 → UNDODISIN 06-14 12:34
PROVIDERS: ADMIT Student in an Organized Health Care Education/Training Program; ATTEND Student in an Organized Health Care Education/Training Program
PROC: BF101ZZ Fluoroscopy of Bile Ducts using Low Osmolar Contrast (ICD-10-PCS; principal; 2024-06-14 08:00)
PROC: 0F798ZZ Dilation of Common Bile Duct, Via Natural or Artificial Opening Endoscopic (ICD-10-PCS; principal; 2024-06-14 08:00)
PROC: 0FB44ZZ Excision of Gallbladder, Percutaneous Endoscopic Approach (ICD-10-PCS; 2024-06-15)
DX: A41.9 Sepsis, unspecified organism (principal); K80.62 Calculus of gallbladder and bile duct with acute cholecystitis without obstruction; R74.01 Elevation of levels of liver transaminase levels; I10 Essential (primary) hypertension; E78.5 Hyperlipidemia, unspecified; K82.A1 Gangrene of gallbladder in cholecystitis; E11.9 Type 2 diabetes mellitus without complications; I16.0 Hypertensive urgency; D50.9 Iron deficiency anemia, unspecified; K21.9 Gastro-esophageal reflux disease without esophagitis; K59.00 Constipation, unspecified; J45.909 Unspecified asthma, uncomplicated; G40.909 Epilepsy, unspecified, not intractable, without status epilepticus; Z87.891 Personal history of nicotine dependence; Z79.899 Other long term (current) drug therapy; Z86.73 Personal history of transient ischemic attack (TIA), and cerebral infarction without residual deficits
CPT/HCPCS: 43262; 74176; 74330; 76705; 80048; 80053; 80076; 82248; 85025; 85027; 87040; 88304; 93005; 96361; 96374; 99285